=== PATIENT | male | born 1965 | race Caucasian/White ===

== ENCOUNTER → 2017-02-24 13:46 | Outpatient (CLI) | payer BC | END | disposition home or self-care (01) | LOC: D.CT 13:46 | DX: G45.9 Transient cerebral ischemic attack, unspecified (principal); H53.9 Unspecified visual disturbance; G51.8 Other disorders of facial nerve ==

== ENCOUNTER 2017-09-18 11:57 | Outpatient (CLI) | payer BC ==
[~2017-09-18] VITALS: Ht 185.4 cm; Wt 93.2 kg
--- NOTE | ~2017-09-18 | OP ---
PATIENT NAME: GENE LARSON MEDICAL RECORD: [id number] :61 LOCATION:D.CAT ADMISSION DATE: SURGEON: BENJAMIN CURTIS MD DATE OF OPERATION: 09/18/2017 PROCEDURE: Left heart cath with selective angiography. This was a difficult access sheath. Finally, we were able to cannulate the right brachial after attempts by myself and Dr. Serrano via left lower extremity, right lower extremity, and right radial. The procedure was well tolerated. The patient was returned to cobb, sheath removed. Manual pressure was used for hemostasis. FINDINGS: Left ventriculography in 30-degree VERGARA view: Normal wall motion, normal systolic function. CORONARY ANATOMY: LEFT MAIN: Left main is free of disease. LAD: Free of disease in the diagonal system. CIRCUMFLEX: Free of disease in the marginal systems. This is a left dominant system. RIGHT CORONARY ARTERY: Rudimentary, free of disease. IMPRESSION: Normal systolic function, normal coronary anatomy. DESCRIPTION OF PROCEDURE: The pigtail catheter was placed at the level of the renal arteries. Abdominal aortography as well as runoff of both lower extremities was performed. Nonselective renal arteriography shows no evidence of renal artery stenosis and a single right and left renal arteries. RIGHT SYSTEM: The right iliac system is occluded at the origin of the aorta. Distally there is filling of what appears to be the profunda at the level of the femoral head and distally the femoral system itself appears to be closed. LEFT SYSTEM: The left iliac system fills for a short period of time. This is thin, totally occludes the are of the femoral artery. The femoral itself appears to be filling via left to left collaterals. IMPRESSION: Severe peripheral vascular disease, not amenable to percutaneous intervention. We will plan for a CTA and referral to Dr. Turner for possible surgical revascularization. TRANSINT:[id number] Voice Confirmation ID: [id number] DOCUMENT ID: [id number] BENJAMIN CURTIS MD at 1424 CC: [id number] DICTATION DATE: 09/19/17828 POSTPARTUM NURSE: 09/19/17 1243 DEP CLI 09/18/17 [place] [address]
--- NOTE | ~2017-09-18 | HEMODYNAMI ---
PATIENT:GENE LARSON MEDICAL RECORD: [id number] : 61 LOCATION:[facility] ADMISSION DATE: 09/18/17 Generatedon:09/18/201715:55 Patient name: GENE LARSON Patient #: [id number] SSN: : 1965 Date of study: 09/18/2017 Page: Of Hemodynamic Procedure Report Patient Data Patient Demographics Procedure consent was obtained First Name: GENE Gender: Male Last Name: MARSHA : 1965 [facility] Initial: PURA Age: 52 year(s) Patient #: [id number] Race: Unknown Additional ID: [id number] Contact details [address]: [address] [place] [address] State: [place] City: [place] Zip code: [address] Past Medical History Allergies: No known allergies Admission Admission Data Admission Date: 09/18/2017 Admission Time: 11:57 Height (in.): 73 BSA: 2.17 (m2) Height (cm.): 185.42 BMI: 26.91 (kg/m2) Weight (lbs.): 204 Weight (kg.): 92.53 Procedure Procedure Types Cath Procedure Diagnostic Procedure C [facility] w/Coronaries Sedation Charges Moderate Sedation up to 45 minutes Peripheral Cath Diagnostic Procedure Cath Peripheral Dneac-Uwtksfc-Hbs-Off Procedure Description Procedure Date Procedure Date: 09/18/2017 Procedure Start Time: 14:32 Procedure End Time: 15:52 Procedure Staff Name Function Kem Cuenca MD Performing Physician Tea Bucio RT Monitor Tamiko Collins RN Nurse Nyasia Montelongo RT Scrub Procedure Data Cath Procedure Fluoroscopy Diagnostic fluoroscopy Total fluoroscopy Time: time: 14.4 min 14.4 min Diagnostic fluoroscopy Total fluoroscopy dose: dose: 1093 mGy 1093 mGy Contrast Material Contrast Material Type Amount (ml) Isovue 300 117 Entry Location Entry Primary Successful Side Size Upsize Upsize Entry Closure Lyons ccessful Closure Location (Fr) 1 (Fr) 2 (Fr) Remarks Device Remarks Brachial Right 6 Fr Manual artery Short Compression Estimated blood loss: 10 ml Diagnostic catheters Device Type Used For End Catheter Placement MULTIPACK Pigtail 5 Fr Procedure catheter DIAGNOSTIC Moose 110cm Procedure 5Fr catheter ([id number]) Procedure Complications No complications Procedure Medications Medication Administration Route Dosage Oxygen NC 2 l/min Lidocaine 2% added to field 20 Heparin Flush Bag added to field 2 bags (1000units/500ml NS) 0.9% NaCl I.V. 100 ml/hr Versed I.V. 2 mg Fentanyl I.V. 100 mcg Versed I.V. 1 mg Fentanyl I.V. 50 mcg Fentanyl I.V. 100 mcg Versed I.V. 1 mg Versed I.V. 1 mg Fentanyl I.V. 50 mcg Versed I.V. 1 mg Fentanyl I.V. 50 mcg Fentanyl I.V. 50 mcg Versed I.V. 1 mg Radial Cocktail I.A. 1 syringe (Verapomil 2mg/Nitro 400mcg/Heparin 1500units) Hemodynamics Rest BSA: 2.17 (m2) O2 Consumption: Estimated: 251.59 (ml/min) O2 Consumption indexed : Estimated:115.94 (ml/min/m) Heart Rate: 63 (bpm) Pressure Samples Time Site Value (mmHg) Purpose Heart Use Rate(bpm) 15:31 LV 105/18,19 Snapshot 70 15:32 AO 104/76(90) Pullback 69 15:32 LV 67/-2,9 Pullback 69 Gradients Valve Time Site 1 Site 2 Mean SEP/DFP Peak To Heart Use (mmHg) (sec/min) Peak Rate (mmHg) (bpm) Aortic 15:32 LV AO 0 69 67/-2,9 104/76(90) Calculations Valve P-P Mean Valve Index Valve Source Name Gradient Area Flow (cm2) Aortic 0 0 Snapshots Pre Cath Intra NCS Post Cath Vital Signs Time Heart Resp SPO2 etCO2 NIBP (mmHg) Rhythm Pain Sedation Rate (ipm) (%) (mmHg) Status Level (bpm) 14:18:36 67 16 97 0 141/88(106) NSR 0 (11) 10(A) , No pain 14:22:50 63 18 94 28.4 120/79(98) NSR 0 (11) 10(A) , No pain 14:27:04 64 15 95 34.4 113/68(88) NSR 0 (11) 10(A) , No pain 14:31:18 64 12 94 31.4 101/64(79) NSR 0 (11) 10(A) , No pain 14:35:26 65 14 97 35.1 110/63(91) NSR 0 (11) 9(A) , No pain 14:39:34 68 15 96 33.6 123/73(101) NSR 0 (11) 9(A) , No pain 14:43:48 70 14 93 29.1 121/67(101) NSR 0 (11) 9(A) , No pain 14:48:00 72 13 94 32.9 117/74(108) NSR 0 (11) 9(A) , No pain 14:52:08 73 14 94 38.8 130/81(97) NSR 0 (11) 9(A) , No pain 14:56:22 72 15 95 36.6 129/74(94) NSR 0 (11) 9(A) , No pain 15:00:34 72 13 93 34.3 118/80(95) NSR 0 (11) 9(A) , No pain 15:04:50 72 16 94 35.1 126/70(95) NSR 0 (11) 9(A) , No pain 15:09:06 73 14 94 38.1 130/68(102) NSR 0 (11) 9(A) , No pain 15:13:24 72 12 95 37.4 119/72(97) NSR 0 (11) 9(A) , No pain 15:17:36 73 15 94 36.6 120/75(100) NSR 0 (11) 9(A) , No pain 15:21:50 74 15 93 15.7 122/65(92) NSR 0 (11) 9(A) , No pain 15:25:59 74 16 92 21.6 113/71(92) NSR 0 (11) 9(A) , No pain 15:30:09 71 15 93 26.9 102/67(78) NSR 0 (11) 9(A) , No pain 15:34:17 68 15 93 33.6 107/67(82) NSR 0 (11) 9(A) , No pain 15:39:14 70 15 93 41.9 126/64(102) NSR 0 (11) 10(A) , No pain 15:43:28 74 17 94 27.6 119/73(86) NSR 0 (11) 10(A) , No pain 15:47:38 67 7 96 30.6 110/72(103) NSR 0 (11) 10(A) , No pain 15:51:48 66 11 95 41.8 123/73(94) NSR 0 (11) 10(A) , No pain Medications Time Medication Route Dose Verified Delivered Reason Notes Effectiveness by by 14:17:03 Oxygen NC 2 l/min Kem Buffie 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 100 Kem Buffie Per ml/hr St Alpesh Collins RN physician 14:29:02 Versed I.V. 2 mg Kem Buffie for sedation St Alpesh Collins RN, MD 14:29:08 Fentanyl I.V. 100 mcg Kem Buffie for sedation St Alpesh Collins RN, MD 14:33:09 Versed I.V. 1 mg Kem Buffie for sedation St Alpesh Collins RN, MD 14:33:13 Fentanyl I.V. 50 mcg Kem Buffie for sedation St Alpesh Collins RN, MD 14:39:30 Fentanyl I.V. 100 mcg Kem Buffie for sedation St Alpesh Collins RN, MD 14:40:23 Versed I.V. 1 mg Kem Buffie for sedation St Alpesh Collins RN, MD 14:54:39 Versed I.V. 1 mg Kem Buffie for sedation St Alpesh Collins RN, MD 14:54:44 Fentanyl I.V. 50 mcg Kem Buffie for sedation St Alpesh Collins RN, MD 15:07:29 Versed I.V. 1 mg Kem Buffie for sedation St Alpesh Collins RN, MD 15:07:40 Fentanyl I.V. 50 mcg Kem Buffie for sedation St Alpesh Collins RN, MD 15:19:56 Fentanyl I.V. 50 mcg Kem Buffie for sedation St Alpesh Collins RN, MD 15:22:53 Versed I.V. 1 mg Kem Buffie for sedation St Alpesh Collins RN, MD 15:28:57 Radial Cocktail I.A. 1 Kem Brownlee for (Verapomil syringe St Alpesh Cuenca vasodilation 2mg/Nitro MD VICTOR 400mcg/Heparin 1500units) Procedure Log Time Note 14:04:19 Patient Weight : 204 lbs 14:04:25 Patient Height : 73 inches 14:04:38 Procedure type changed to Cath procedure, Diagnostic procedure, LHC, LHC w/Coronaries, Sedation Charges, Moderate Sedation up to 45 minutes, Peripheral Cath Diagnostic Procedure, Cath Peripheral, Gyqlz-Jzsqolq-Zgu-Off 14:05:07 Diagnostic Cath status Elective 14:05:09 Tamiko Collins RN sent for patient. Start room use. 14:05:10 Time tracking: Regular hours (M-F 7:00 - 5:00) 14:05:19 Plan of Care:Hemodynamics will remain stable., Cardiac rhythm will remain stable., Comfort level will be maintained., Respiratory function will remain adequate., Patient/ family verbilizes understanding of procedure., Procedure tolerated without complication., Recovers from procedure without complications.. 14:09:42 Patient received from Pre/Post Procedure Room to CCL 2 Alert and oriented. Tansferred to table in Supine position. 14:09:43 Warm blankets applied, and kerwin hugger turned on for patient comfort. 14:09:44 Correct patient and procedure confirmed by team. 14:09:46 Signed procedure consent form obtained from patient. 14:09:48 ECG and BP/O2 sat monitors applied to patient. 14:17:03 Oxygen 2 l/min NC was administered by Tamiko Collins RN; used for procedure; 14:17:11 Lidocaine 2% 20ml vial added to field was administered by Kem Cuenca MD; for local anesthetic; 14:17:18 Heparin Flush Bag (1000units/500ml NS) 2 bags added to field was administered by Kem Cuenca MD; used for procedure; 14:17:28 0.9% NaCl 100 ml/hr I.V. was administered by Tamiko Collins RN; Per physician; 14:17:31 Vital chart was started 14:24:17 Baseline sample Acquired. 14:24:22 Rhythm: sinus rhythm 14:24:24 Full Disclosure recording started 14:24:35 H&P Date Dictated: 09/12/2017 Within 30 days and on chart., H&P Addendum completed by physician on day of procedure. (MUST COMPLETE FOR ALL OUTPATIENTS). 14:24:37 Pre-procedure instructions explained to patient. 14:24:39 Family in waiting room. 14::41 Patient NPO since Midnight. 14:24:53 Patient allergic to No known allergies 14:25:06 Is the patient allergic to Iodine/contrast media? No. 14:25:07 Was the patient premedicated? Yes 14:25:09 Is patient on blood thinner?No 14:25:13 Patient diabetic? No. 14:25:18 Snore? No 14:25:19 Sleep apnea? No 14:25:35 IV patent on arrival in left forearm with 0.9% NaCl at [facility]. 14::33 Lab results completed and on chart. 14:27:37 Bilateral groins area was prepped with chlora-prep and draped in sterile fashion 14:27:38 Alarms reviewed by R. N. 14::38 Sharps counted by scrub and verified by R.N. 14:27:40 Physician paged 14:27:40 Physician arrived 14:27:41 --------ALL STOP TIME OUT------ 14:27:42 Final Timeout: patient, procedure, and site verified with staff and physician. All members of the team are in agreement. 14:27:45 Bilateral groins site verified by team. 14:27:48 Physical assessment completed. ASA score P 2 - A patient with mild systemic disease as per Kem Cuenca MD. 14:27:52 Sedation plan: IV Moderate Sedation Medication:Versed, Fentanyl 14:29:02 Versed 2 mg I.V. was administered by Tamiko Collins RN; for sedation; 14:29:08 Fentanyl 100 mcg I.V. was administered by Tamiko Collins RN; for sedation; 14:30:59 Use device set Femoral Dx 14:31:04 Procedure started. 14:31:33 ACIST Syringe (03765) opened to sterile field. 14:31:34 Bag Decanter (2002) opened to sterile field. 14:31:38 Medline Cath Pack ([id number]) opened to sterile field. 14:31:38 DIAGNOSTIC WIRE .035 260cm J wire (464064) opened to sterile field. 14:31:40 ACIST Hand Control (90896) opened to sterile field. 14:31:40 ACIST Manifold (45986) opened to sterile field. 14:31:41 DIAGNOSTIC Multipack 5Fr catheter set ([id number]) opened to sterile field. 14:31:44 Tegaderm 4 x 4 (1626W) opened to sterile field. 14:32:39 Local anesthetic to right femoral artery with Lidocaine 2% by Kem Cuenca MD.INITIAL ACCESS ONLY 14:33:09 Versed 1 mg I.V. was administered by Tamiko Collins RN; for sedation; 14:33:13 Fentanyl 50 mcg I.V. was administered by Tamiko Collins RN; for sedation; 14:37:26 MICROPUNCTURE 4FR Cook ([id number]) opened to sterile field. 14:37:36 Local anesthetic to left femerol artery with Lidocaine 2% by Kem Cuenca MD.ADDITIONAL ACCESS 14:38:18 access attained in the left femoral vein. 14:39:30 Fentanyl 100 mcg I.V. was administered by Tamiko Collins RN; for sedation; 14:40:23 Versed 1 mg I.V. was administered by Tamiko Collins RN; for sedation; 14:54:39 Versed 1 mg I.V. was administered by Tamiko Collins RN; for sedation; 14:54:44 Fentanyl 50 mcg I.V. was administered by Tamiko Collins RN; for sedation; 15:00:03 Local anesthetic to right radial artery with Lidocaine 2% by Kem Cuenca MD.ADDITIONAL ACCESS 15:00:53 right radial artery prepped 15:07:29 Versed 1 mg I.V. was administered by Tamiko Collins RN; for sedation; 15:07:40 Fentanyl 50 mcg I.V. was administered by Tamiko Collins RN; for sedation; 15:19:56 Fentanyl 50 mcg I.V. was administered by Tamiko Collins RN; for sedation; 15:22:53 Versed 1 mg I.V. was administered by Tamiko Collins RN; for sedation; 15:26:20 right brachial artery prepped 15:26:56 A 6 Fr Short sheath was inserted into the Right Brachial artery 15:27:02 J wire advanced. 15:28:57 Radial Cocktail (Verapomil 2mg/Nitro 400mcg/Heparin 1500units) 1 syringe I.A. was administered by Kem Cuenca MD; for vasodilation; 15:30:15 A MULTIPACK Pigtail 5 Fr catheter was advanced over the wire and used for Procedure. 15:32:36 EF : 55 % 15:32:38 LV hemodynamics recorded. 15:32:49 A 5 FrFr Pigtail catheter was inserted over the wire. 15:32:51 Abdominal angiogram w/ runoff was performed. 15:41:29 Catheter removed. 15:41:40 A DIAGNOSTIC Moose 110cm 5Fr catheter ([id number]) was advanced over the wire and used for Procedure. 15:41:55 LCA angiography performed. 15:42:20 RCA angiography performed. 15:45:13 Catheter removed. 15:46:01 Sheath removed intact; hemostasis achieved with Manual Compression to the Right Brachial artery. 15:46:04 Procedure ended.(Physican Out) 15:47:39 Fluoroscopy time 14.40 minutes. 15:47:43 Fluoroscopy dose: 1093 mGy 15:47:43 Flurop Dose total: 1093 15:48:01 Contrast amount:Isovue 300 117ml. 15:48:03 Sharps counted by scrub and verified by R.N. 15:48:05 Insertion/operative site no bleeding no hematoma. 15:48:11 Post-op/insertion site Right Femoral artery dressed using a 4 x 4 and Tegaderm. 15:48:14 Post-op/insertion site Left Femoral artery dressed using a 4 x 4 and Tegaderm. 15:48:20 Post-op/insertion site Right Radial artery dressed using a Bandaid. 15:48:37 Post-op/insertion site Right Brachial artery dressed using a 4 x 4 and Tegaderm. 15:48:43 Post right brachial artery:stable 15:48:46 Post Procedure Pulses reassessed and unchanged 15:48:49 Post-procedure physical assessment completed. ASA score P 2 - A patient with mild systemic disease as per Kem Cuenca MD. 15:48:54 Post procedure rhythm: sinus rhythm 15:49:00 Estimated blood loss: 10 ml 15:49:05 Post procedure instruction explained to patient.Patient verbalizes understanding. 15:49:08 Patient needs reinforcement of post procedure teaching. 15:50:18 Procedure and supply charges have been captured, reviewed, submitted and are correct. 15:51:50 Procedure Complication : No complications 15:51:52 Vital chart was stopped 15:51:53 See physician's report for complete and final results. 15:51:55 Report given to Pre/Post Procedure Room. 15:52:03 Patient transfered to Pre/Post Procedure Room with Stretcher. 15:52:05 Procedure ended. 15:52:05 Full Disclosure recording stopped 15:52:14 End room use (Document Last) Device Usage Item Name Manufacture Quantity Catalog Hospital Part Current Minimal Lot# / Number Charge Number Stock Stock Serial# Code ACIST Syringe Acist 1 66132 838856 454793 849000 20 (67128) Medical Systems Inc Bag Decanter Microtek 1 2001S 045193 04475 987879 5 (2001S) Medical Inc. Medline Cath Cardinal 1 [id number] 012765 32368 964585 5 Pack Health ([id number]) DIAGNOSTIC St Ezra 1 411960 613475 937924 740240 30 WIRE .035 260cm J wire (585048) ACIST Hand Acist 1 03300 286943 784049 118441 5 Control Medical (49676) Systems Inc ACIST Acist 1 89787 532256 153979 247680 5 Manifold Medical (05261) Systems Inc DIAGNOSTIC Cardinal 1 HF7256 033055 33045 493781 30 Multipack 5Fr Health catheter set (YH2986) Tegaderm 4 x 3M 1 1626W 904544 265395 557815 5 4 (1626W) MICROPUNCTURE Cook Medical 1 N77032 671023 511418 920262 5 4FR Cook (K51110) MULTIPACK Cardinal 1 185000 5 Pigtail 5 Fr Health catheter DIAGNOSTIC Terumo 1 38-0729 204506 890154 830188 5 Moose 110cm 5Fr catheter (665334) Signature Audit [place] Stage Time Signature Unsigned Intra-Procedure 09/18/2017 Tea Bucio 3:54:59 PM RT(R) Signatures Monitor : Tea Bucio Signature : RT Date : Time : [facility] [address] [place], [place] [id number]
[2017-09-18] MEDS ORDERED: LEVOXYL25 MCG PO (12:18)
[2017-09-18] MEDS ORDERED: DICLOFENAC SODI50 MG PO (12:18)
[2017-09-18] MEDS ORDERED: PAROXETINE HCL10 MG PO (12:19)
[2017-09-18] MEDS ORDERED: OMEPRAZOLE20 M1 PO (12:19)
[2017-09-18] MEDS ORDERED: CYCLOBENZAPRINE10 MG PO (12:20)
[2017-09-18] MEDS ORDERED: NORVASC5 MG PO (12:20)
[2017-09-18] MEDS ORDERED: ZEBETA5 MG PO (12:20)
[2017-09-18] MEDS ORDERED: LIPITOR80 MG PO (12:21)
[2017-09-18] MEDS ORDERED: TRAZODONE HCL50 MG PO (12:21)
[2017-09-18] MEDS ORDERED: ASPIRIN81 MG PO (12:22)
[2017-09-18] MEDS ORDERED: ASPIRIN325 MG PO (12:22)
[2017-09-18] MEDS ORDERED: FISH OIL 1,2001 CAP PO (12:23)
[2017-09-18] MEDS ORDERED: MAG-OX 400 MG400 MG PO (12:24)
[2017-09-18] MEDS ORDERED: POTASSIUM99 M1 PO (12:24)
[2017-09-18] MEDS ORDERED: MULTIPLE VITAMI1 TA1 PO (12:25)
[2017-09-18 12:42] LABS: BASOPHILS 0.3 % (0-2); EOSINOPHILS 1.6 % (0-7); HEMOGLOBIN 16.8 g/dL (13.5-17.5); IMMATURE GRANULOCYTES 0.9 % (0-5); LYMPHOCYTES 28.1 % (15-50); MCV 91.4 fL (80.0-100.0); MEAN PLATELET VOLUME 10.2 fL (7.4-10.4); MONOCYTES 8.8 % (2-11); NEUTROPHILS 60.3 % (40-80); PLATELET COUNT 176 10x3/uL (130-400); RBC 5.25 10x6/uL (4.20-6.10); RDW 13.2 % (11.5-14.5)
[2017-09-18 12:52] VITALS: BP 134/77; Ht 185.4 cm; Wt 93.2 kg
[2017-09-18 12:58] LABS: ANION GAP 12.3 mmol/L (8-16); CARBON DIOXIDE 25.9 mmol/L (21.0-32.0); CREATININE - SERUM 1.2 mg/dL (0.6-1.3); POTASSIUM - SERUM 4.2 mmol/L (3.5-5.1)
[2017-09-18] MEDS ORDERED: HYDROCODONE-APA1 TAB PO (17:04)
== END 2017-09-18 18:30 | disposition home or self-care (01) ==
LOC: D.CATH 11:57
PROVIDERS: Internal Medicine Interventional Cardiology
DX: I70.203 Unspecified atherosclerosis of native arteries of extremities, bilateral legs (principal); I10 Essential (primary) hypertension; Z01.812 Encounter for preprocedural laboratory examination

== ENCOUNTER → 2017-09-22 13:26 | Outpatient (CLI) | payer BC ==
[2017-09-18 12:52] VITALS: BMI 27.1
[~2017-09-22 13:26] MED LIST: ASPIRIN325 MG PO; ASPIRIN81 MG PO; CYCLOBENZAPRINE10 MG PO; DICLOFENAC SODI50 MG PO; FISH OIL 1,2001 CAP PO; HYDROCODONE-APA1 TAB PO; LEVOXYL25 MCG PO; LIPITOR80 MG PO; MAG-OX 400 MG400 MG PO; MULTIPLE VITAMI1 TA1 PO; NORVASC5 MG PO; OMEPRAZOLE20 M1 PO; PAROXETINE HCL10 MG PO; POTASSIUM99 M1 PO; TRAZODONE HCL50 MG PO; ZEBETA5 MG PO
== END | disposition home or self-care (01) ==
LOC: D.CT 13:26
DX: I70.219 Atherosclerosis of native arteries of extremities with intermittent claudication, unspecified extremity (principal); I73.9 Peripheral vascular disease, unspecified

== ENCOUNTER → 2017-10-06 07:46 | Outpatient (CLI) | payer BC ==
[2017-09-18 12:52] VITALS: BMI 27.1
[~2017-10-06 07:46] MED LIST changes: +LOPRESSOR25 MG PO; +MILK OF MAGNESI30 ML PO; +PERCOCET 10/3251 TA1 PO
== END | disposition home or self-care (01) ==
LOC: D.MRI 07:46
DX: E27.9 Disorder of adrenal gland, unspecified (principal)

== ENCOUNTER 2017-10-23 05:00 | Inpatient (IN) | payer BC ==
[2017-10-20 12:02] LABS: BASOPHILS 0.4 % (0-2); EOSINOPHILS 2.6 % (0-7); HEMOGLOBIN 15.8 g/dL (13.5-17.5); IMMATURE GRANULOCYTES 0.4 % (0-5); LYMPHOCYTES 31.8 % (15-50); MCH 31.7 pg (26.0-34.0); MCHC 34.3 g/dL (31.0-37.0); MCV 92.2 fL (80.0-100.0); MONOCYTES 7.2 % (2-11); NEUTROPHILS 57.6 % (40-80); PLATELET COUNT 163 10x3/uL (130-400); RBC 4.99 10x6/uL (4.20-6.10); RDW 13.5 % (11.5-14.5); WBC 7.6 10x3/uL (4.8-10.8)
[2017-10-20 12:11] LABS: APPEARANCE CLEAR (CLEAR); BILIRUBIN NEGATIVE (NEGATIVE); COLOR YELLOW (YELLOW); GLUCOSE NEGATIVE (NEGATIVE); KETONE NEGATIVE (NEGATIVE); NITRITE NEGATIVE (NEGATIVE); PROTEIN NEGATIVE (NEGATIVE); UROBILINOGEN NORMAL (NORMAL)
[2017-10-20 12:14] LABS: APTT 32.9 SECONDS (22.8-39.4); INR 0.97 (0.85-1.17); PROTIME 12.5 SECONDS (11.6-15.0)
[2017-10-20 12:23] LABS: ALBUMIN 3.9 g/dL (3.4-5.0); ANION GAP 13.5 mmol/L (8-16); BILIRUBIN - TOTAL 0.55 mg/dL (0.2-1.3); CALCIUM 9.3 mg/dL (8.5-10.1); CARBON DIOXIDE 26.8 mmol/L (21.0-32.0); CREATININE - SERUM 1.1 mg/dL (0.6-1.3); POTASSIUM - SERUM 4.3 mmol/L (3.5-5.1); PROTEIN - SERUM 7.3 g/dL (6.4-8.2)
[2017-10-23] VITALS (47 sets, daily range): BP systolic 92–135; BP diastolic 47–76; BMI 27.1; BMI 26.2
[~2017-10-23] VITALS: Ht 185.4 cm; Wt 93.7 kg
--- NOTE | ~2017-10-23 | HP ---
PATIENT: GENE LARSON MEDICAL RECORD: [id number] ACCOUNT: [id number] LOCATION:[facility] : 61 ADMISSION DATE: 10/23/17 HISTORY AND PHYSICAL EXAMINATION GENE Sanchez (52yo, M) ID# [id number]. Date/Time10/03/2017 11:15CYIKN1965[facility] Dept.NPP_[facility] ClinicProviderTRI LEONARD MDInsuranceMed Primary: [place]) Insurance # : [id number] Policy/Group # : [id number] Referring Provider Name : TRIPP LEWIS Employer Name : [employer]\ Prescription: CMX - Member is eligible. Chief Complaint PVD - peripheral vascular disease Patient's Care Team Referring Provider (): TRIPP LEWIS: [address] [place] [phone], , Station Attendant: BENJAMIN CURTIS MD: [address] [place] [phone], , Patient's Pharmacies [facility] ([facility]): [address] [place] [id number], , Vitals BP:180/78 sitting L arm 10/03/2017 11:28 am 176/76 sitting R arm 10/03/2017 11:29 amBP Cuff Size:adult 10/03/2017 11:28 am adult 10/03/2017 11:29 amHR:80 10/03/2017 11:29 amHt:6 ft 1 in 10/03/2017 11:30 amWt:205 lbs 10/03/2017 11:30 amNotes:LLE tingling, pain in hip. Had heart cath w afro, also had CTA abd AFRO feet get numb at night can't walk 50 yards without /29/2018 11:32 amBMI:27 10/03/2017 11:30 amAllergies Reviewed Allergies NKDAMedications Reviewed Medications amLODIPine 5 mg iweksa29/11/18 filledCaremarkaspirin 81mg daily09/29/17 enteredEridaren Watkinsatorvastatin 80 mg uexoow92/29/18 filledCaremarkbisoprolol fumarate 5 mg nfdoaj87/02/18 filledCaremarkbusPIRone 15 mg keofhn05/07/17 filledCaremarkcephALEXin 500 mg xibrtms92/11/17 filledCaremarkchlorhexidine gluconate 0.12 % vwyoidrji56/11/17 filledCaremarkcyclobenzaprine 10 mg hagfgg00/29/18 filledCaremarkdexamethasone 4 mg qvioqs04/11/17 filledCaremarkdiclofenac sodium 50 mg tablet,delayed plignot96/06/18 filledCaremarkHYDROcodone 10 mg-acetaminophen 325 mg acisgn76/14/18 filledCaremarklevothyroxine 25 mcg mixlta17/06/18 filledCaremarkomeprazole 20 mg capsule,delayed flxqcoa91/07/18 filledCaremarkPARoxetine 10 mg frhiqr60/07/18 filledCaremarksildenafil (antihypertensive) 20 mg tablet Take 1 tablet(s) 3 times a day by oral route.09/29/17 enteredEridaern WatkinstraZODone 50 mg /11/18 filledCaremarkProblems Reviewed Problems Hyperlipidemia Essential hypertension Peripheral vascular disease Osteoarthritis Palpitations HISTORY AND PHYSICAL [id number] GENE LARSON Chest pain - Onset: 09/12/2017 Family History Reviewed Family History Father- Myocardial infarctionSocial History Reviewed Social History Cardiology Family history of heart disease?: Y Smoking Status: Current every day smoker Smoker (1 PPD) High Cholesterol: Y High blood pressure: Y Diabetes: N Alcohol intake: Occasional Surgical History Reviewed Surgical History Past Medical History Reviewed Past Medical History Angina: Y Eye Problems: Y - R EYE-STROKE Heartburn: Y High Blood Pressure: Y Hyperlipidemia: Y Hypertension: Y Pain in legs when walking: Y Palpitation: Y Peripheral Vascular Disease (PVD): Y Thyroid Problems: Y Documents for Discussion N/A Screening None recorded. HPI 52-year-old male with claudication at 50 feet, status post cardiac catheterization via brachial with iliac occlusion and no significant coronary disease. CTA runoff reconstitutes the right femoral for a short distance both superficial femorals are occluded profundas looked very small and on the right the popliteal does not reconstitute until below the knee ROS Additionally reports: as reviewed in the chart with the patient ROS as noted in the HPI Physical Exam Patient is a 52-year-old male. Constitutional: General Appearance well nourished and developed and healthy-appearing. Level of Distress NAD. Ambulation ambulating normally. Cardiovascular: Apical Impulse not displaced or no thrill. Heart Auscultation normal s1 and s2; no murmurs, rubs, or gallops; and RRR. Edema no edema or varicosities. Lungs: Repiratory Effort no dyspnea. Percussion no hyperresonance or dullness or flatness. Auscultation no wheezing, rhonchi, or rales / crackles and breathing sounds normal, good air movement, and CTA except as noted. HISTORY AND PHYSICAL [id number] GENE LARSON Abdomen: Bowl Sounds normal. Inspection and Palpation no tenderness, guarding, masses, or rebound tenderness and soft and non-distended. Julisa er non-tender and no hepatomegaly. Spleen non-tender and no splenomegaly. Hernia none palpable. Musculoskeletal System: Gait And Stance normal gait and stance. Digits and Nails normal nails and no cyanosis. Neurologic: Cranial Nerves grossly intact. Reflexes DTRs 2+ bilaterally throughout. Sensation grossly intact. Lymph Nodes: Lymph Nodes no cervical LAD, supraclavicular LAD, axillary LAD, or inguinal LAD. Eyes: Lids and Conjunctivae no discharge or pallor and non-injected. Pupils PERRLA. Cornea grossly intact. EOM EOMI. Lens clear. Sclerae non-icteric. Neck: Neck no masses, enlarged lymph nodes, or carotid bruits and supple and trachea midline. Thyroid no enlargement or nodules and non-tender. Skin: Inspection and Palpation no rash, lesions, ulcers, jaundice, or abnormal nevi. Assessment / Plan 1. 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
--- NOTE | ~2017-10-23 | OP ---
PATIENT NAME: GENE LARSON MEDICAL RECORD: [id number] :61 LOCATION:D.CVI D.CV05 ADMISSION DATE:10/23/17 SURGEON: GLENN LEONARD MD DATE OF OPERATION: 10/23/2017 SURGEON: Glenn Leonard MD CUTTER APPRENTICE HAND: STACEY Rutherford MD and RODOLFO Stone OPERATION PERFORMED: Aortobifemoral bypass for occlusive disease. PREOPERATIVE DIAGNOSIS: Aortoiliac occlusive disease and peripheral vascular disease with claudication. ANESTHESIA: General endotracheal anesthesia. ESTIMATED BLOOD LOSS: 650 cc with Cell Saver retransfusion. COMPLICATIONS: None. SPECIMENS: Right inguinal lymph node. CONDITION: Stable. DISPOSITION: ICU. OPERATIVE FINDINGS: 1. Large right inguinal lymph node. 2. Normal infrarenal aorta end-to-end anastomosis with the aorta oversewn just above the bifurcation, no sizable inferior mesenteric artery. 3. The right common femoral had egg shell-like plaque and the head of the graft was taken down over the profunda femoral with good augmented Doppler flow in the profunda femoral and good flow unexpectedly also in the superficial femoral. There was a large more proximal profunda and the more distally it branched off the posterior aspect of the superficial femoral that appeared to go posteriorly. 4. On the left, the common femoral artery was small as previously seen. Therefore, the graft was taken off just over the origin of 2 large profunda femoral arteries and the head down onto the superficial femoral with again good augmented flow after anastomosis and after reversal of heparin. INDICATION: Severe short distance claudication, iliac occlusion, and infra inguinal peripheral vascular disease. DESCRIPTION OF PROCEDURE: The patient was brought to the operating suite where general anesthesia was obtained, the patient was prepped and draped. Bilateral incisions were made simultaneously over the groin in a vertical fashion, taken down to the common femoral, superficial femoral, profunda femorals, which were dissected out. Midline incision was made. The abdomen was entered. The bowels were carefully packed out of the way. The retroperitoneum was entered. The inferior mesenteric vein was preserved and the left renal vein was retracted upwardly. The aorta was encircled just below the renal arteries. Heparin was given after tunneling between the retroperitoneum and both groins. OPERATIVE REPORT [id number] GENE LARSON The aorta was clamped. The aorta was transected. Distal aorta was oversewn. End-to-end anastomosis with 14 x 7 bifurcated Hemashield was performed. The graft was flushed. There was no bleeding. The limbs of the graft were brought into both groins, first the right and then the left were sewn on in a standard fashion. Backbleeding was allowed prior to completing the anastomosis and then flow was restored. Good Doppler signal was noted. Protamine was given. Thorough irrigation was undertaken. Hemostasis was ensured including using Surgicel. Back in the abdomen, the retroperitoneum was thoroughly irrigated. Surgicel was used for hemostasis. Retroperitoneum was closed. The intestines were brought back into their anatomic position and thorough irrigation with several liters of warm saline was performed. Abdomen was closed with running PDS, subcutaneous and skin clips and then the groins 2 layers and skin clips. Good Doppler dorsalis pedis pulses bilaterally and to CV ICU in stable condition. TRANSINT:[id number] Voice Confirmation ID: [id number] DOCUMENT ID: [id number] GLENN LEONARD MD at 0736 CC: ANABELLE PIERSON [id number] DICTATION DATE: 10/23/17 1240 SENIOR GEOTECHNICAL ENGINEER: 10/23/17 1404 ADM IN [facility] [address] [place] [address]
[~2017-10-23 05:00] MED LIST changes: -LOPRESSOR25 MG PO; -MILK OF MAGNESI30 ML PO; -PERCOCET 10/3251 TA1 PO
[2017-10-23 13:11] LABS: HEMATOCRIT 43.3 % (42.0-54.0); HEMOGLOBIN 14.9 g/dL (13.5-17.5); MCHC 34.4 g/dL (31.0-37.0); MCV 93.1 fL (80.0-100.0); MEAN PLATELET VOLUME 9.9 fL (7.4-10.4); RBC 4.65 10x6/uL (4.20-6.10); RDW 13.6 % (11.5-14.5); WBC 26.8 10x3/uL (4.8-10.8)
[2017-10-23 13:45] LABS: ALBUMIN 3.1 g/dL (3.4-5.0); ANION GAP 15.4 mmol/L (8-16); BILIRUBIN - TOTAL 0.91 mg/dL (0.2-1.3); CALCIUM 7.4 mg/dL (8.5-10.1); CARBON DIOXIDE 24.1 mmol/L (21.0-32.0); CREATININE - SERUM 1.4 mg/dL (0.6-1.3); POTASSIUM - SERUM 4.5 mmol/L (3.5-5.1); PROTEIN - SERUM 5.5 g/dL (6.4-8.2)
[2017-10-24] VITALS (27 sets, daily range): BP systolic 105–137; BP diastolic 55–74; Ht 185.4 cm; Wt 93.7 kg
[2017-10-24 06:04] LABS: HEMATOCRIT 39.2 % (42.0-54.0); HEMOGLOBIN 13.1 g/dL (13.5-17.5); MCH 31.4 pg (26.0-34.0); MCHC 33.4 g/dL (31.0-37.0); MEAN PLATELET VOLUME 9.9 fL (7.4-10.4); RBC 4.17 10x6/uL (4.20-6.10); RDW 13.9 % (11.5-14.5); WBC 11.7 10x3/uL (4.8-10.8)
[2017-10-24 06:20] LABS: ALBUMIN 2.8 g/dL (3.4-5.0); ANION GAP 14.2 mmol/L (8-16); BILIRUBIN - TOTAL 0.7 mg/dL (0.2-1.3); CARBON DIOXIDE 23.5 mmol/L (21.0-32.0); CREATININE - SERUM 1.3 mg/dL (0.6-1.3); PROTEIN - SERUM 5.7 g/dL (6.4-8.2)
[2017-10-24 06:22] LABS: POTASSIUM - SERUM 3.7 mmol/L (3.5-5.1)
[2017-10-25] VITALS (24 sets, daily range): BP systolic 124–146; BP diastolic 51–78
[2017-10-25 04:25] LABS: HEMATOCRIT 35.5 % (42.0-54.0); HEMOGLOBIN 11.8 g/dL (13.5-17.5); MCH 31.1 pg (26.0-34.0); MCHC 33.2 g/dL (31.0-37.0); MCV 93.4 fL (80.0-100.0); MEAN PLATELET VOLUME 9.6 fL (7.4-10.4); RBC 3.8 10x6/uL (4.20-6.10); RDW 13.7 % (11.5-14.5); WBC 11.2 10x3/uL (4.8-10.8)
[2017-10-25 04:39] LABS: ALBUMIN 2.8 g/dL (3.4-5.0); ALKALINE PHOSPHATASE 62 U/L (46-116); ALT (SGPT) 50 U/L (10-68); CALC OSMOLALITY 280 mosm/kg (275-300); CALCIUM 8.1 mg/dL (8.5-10.1); CARBON DIOXIDE 27.7 mmol/L (21.0-32.0); CHLORIDE - SERUM 107 mmol/L (98-107); GLUCOSE 154 mg/dL (74-106); POTASSIUM - SERUM 3.5 mmol/L (3.5-5.1); PROTEIN - SERUM 5.9 g/dL (6.4-8.2); SODIUM 139 mmol/L (136-145); UREA NITROGEN 12 mg/dL (7-18); eGFR NON AFRICAN AMERICAN 83 mL/min (90-120)
[2017-10-26] VITALS (24 sets, daily range): BP systolic 114–139; BP diastolic 49–77
[2017-10-26 06:21] LABS: HEMATOCRIT 33.6 % (42.0-54.0); HEMOGLOBIN 11.3 g/dL (13.5-17.5); MCHC 33.6 g/dL (31.0-37.0); MCV 92.3 fL (80.0-100.0); MEAN PLATELET VOLUME 9.9 fL (7.4-10.4); RBC 3.64 10x6/uL (4.20-6.10); RDW 13.5 % (11.5-14.5); WBC 11.9 10x3/uL (4.8-10.8)
[2017-10-26 06:52] LABS: ALBUMIN 2.4 g/dL (3.4-5.0); ALKALINE PHOSPHATASE 59 U/L (46-116); ALT (SGPT) 53 U/L (10-68); CALC OSMOLALITY 273 mosm/kg (275-300); CALCIUM 8.7 mg/dL (8.5-10.1); CARBON DIOXIDE 25.1 mmol/L (21.0-32.0); CHLORIDE - SERUM 104 mmol/L (98-107); CREATININE - SERUM 0.9 mg/dL (0.6-1.3); GLUCOSE 128 mg/dL (74-106); POTASSIUM - SERUM 3.5 mmol/L (3.5-5.1); SODIUM 137 mmol/L (136-145); UREA NITROGEN 8 mg/dL (7-18); eGFR NON AFRICAN AMERICAN > 90 mL/min (90-120)
[2017-10-27] VITALS (36 sets, daily range): BP systolic 55–148; BP diastolic 23–89
[2017-10-27 06:20] LABS: HEMATOCRIT 33.6 % (42.0-54.0); HEMOGLOBIN 11.4 g/dL (13.5-17.5); MCH 31.2 pg (26.0-34.0); MCHC 33.9 g/dL (31.0-37.0); MCV 92.1 fL (80.0-100.0); MEAN PLATELET VOLUME 10.1 fL (7.4-10.4); RBC 3.65 10x6/uL (4.20-6.10); RDW 13.4 % (11.5-14.5); WBC 10.5 10x3/uL (4.8-10.8)
[2017-10-27 06:50] LABS: ALBUMIN 2.4 g/dL (3.4-5.0); ALKALINE PHOSPHATASE 71 U/L (46-116); ALT (SGPT) 58 U/L (10-68); CALC OSMOLALITY 272 mosm/kg (275-300); CALCIUM 8.3 mg/dL (8.5-10.1); CARBON DIOXIDE 24.1 mmol/L (21.0-32.0); CHLORIDE - SERUM 103 mmol/L (98-107); GLUCOSE 128 mg/dL (74-106); POTASSIUM - SERUM 3.8 mmol/L (3.5-5.1); PROTEIN - SERUM 6.2 g/dL (6.4-8.2); SODIUM 136 mmol/L (136-145); UREA NITROGEN 10 mg/dL (7-18); eGFR NON AFRICAN AMERICAN 83 mL/min (90-120)
[2017-10-28] VITALS (30 sets, daily range): BP systolic 97–148; BP diastolic 43–97
[2017-10-29] VITALS (23 sets, daily range): BP systolic 113–149; BP diastolic 44–89
[2017-10-30] VITALS (10 sets, daily range): BP systolic 117–135; BP diastolic 59–82
[2017-10-30] MEDS ORDERED: LOPRESSOR25 MG PO (10:56)
[2017-10-30] MEDS ORDERED: MILK OF MAGNESI30 ML PO (11:00)
[2017-10-30] MEDS ORDERED: PERCOCET 10/3251 TA1 PO (11:05)
== END 2017-10-30 12:28 | disposition home or self-care (01) | DRG 272 ==
LOC: D.SDCHOLD 05:00 → D.CVICU 05:00 → D.SDCHOLD 07:30 → D.CLR 10:00 → D.CVICU 10:19
PROVIDERS: Internal Medicine Cardiovascular Disease; Thoracic Surgery (Cardiothoracic Vascular Surgery)
PROC: 04100JJ Bypass Abdominal Aorta to Left Femoral Artery with Synthetic Substitute, Open Approach (ICD-10-PCS; principal; 2017-10-23 07:30)
DX: I70.213 Atherosclerosis of native arteries of extremities with intermittent claudication, bilateral legs (principal); E27.8 Other specified disorders of adrenal gland; F17.200 Nicotine dependence, unspecified, uncomplicated; M19.90 Unspecified osteoarthritis, unspecified site; E78.5 Hyperlipidemia, unspecified; I10 Essential (primary) hypertension; R00.2 Palpitations; M25.552 Pain in left hip

== ENCOUNTER → 2018-02-13 14:36 | Outpatient (CLI) | payer BC ==
[2017-10-24 10:43] VITALS: BMI 26.3
[~2018-02-13 14:36] MED LIST changes: +LOPRESSOR25 MG PO; +MILK OF MAGNESI30 ML PO; +PERCOCET 10/3251 TA1 PO
== END | disposition home or self-care (01) ==
LOC: D.US 08:00
DX: I73.9 Peripheral vascular disease, unspecified (principal); M79.605 Pain in left leg; M79.604 Pain in right leg

== ENCOUNTER → 2019-01-04 08:20 | Outpatient (CLI) | payer BC ==
[2017-10-24 10:43] VITALS: BMI 26.3
[~2019-01-04 08:20] MED LIST changes: +HYDROCODON-ACE1 EA10 PO
--- NOTE | 2019-01-08 14:28 | EC ---
PATIENT:GENE LARSON DATE OF SERVICE: 01/04/19 SEX: M MEDICAL RECORD: [id number] DATE OF : 61 [facility] AGE OF PATIENT: 53 ADMISSION DATE: 01/04/19 REFERRING PHYSICIAN: INTERPRETING PHYSICIAN: BENJAMIN CURTIS MD ECHOCARDIOGRAM REPORT ECHO CHARGES 4 ECHO COMPLETE Date: 01/04/19 CLINICAL DIAGNOSIS: HTN ECHOCARDIOGRAPHIC MEASUREMENTS (adult normal given) AC root (d.<3.7cm) 3.5 cm LV Septum d (<1.2 cm> 1.2 cm Valve Excursion 1.9 cm LV Septum (systole) 1.9 cm Left Atria (s.<4.0cm> 3.8 cm LVPW d(<1.2cm) 1.5 cm RV (d.<2.3cm) 4.0 cm LVPW (sytole) 1.9 cm LV diastole(<5.6CM) 4.7 cm MV E-F(>70mm/sec) cm LV systole 2.9 cm LVOT Diameter 1.9 cm MV exc.(>10mm) 1.7 cm Est.ejection fraction (50-75%) % DOPPLER: LVIT cm/sec A 80.0 cm/sec E 92.0 cm/sec LA cm/sec RVSP 19 mmHg LVOT 93 cm/sec AOP1/2T m/s Asc. Ao 119 cm/sec RVOT cm/sec RA cm/sec PA cm/sec AV Gradient Peak 5.66 mmHg AV Mean 2.81 mmHg AV Area 2.8 cm MV Gradient Peak 4.86 mmHg MV Mean 1.39 mmHg MV Area cm COMMENTS: [employer]ists: 2 [employer] Supervisor: 3 Dr. Yu TAPE# PACS Pericardial Effusion N DATE OF SERVICE: Adequate 2D, color flow, spectral Doppler, and M-mode. LVH is present. LV internal dimension is normal. Wall motion is normal. EF is greater than or equal to 55%. Aortic valve is tricuspid. No evidence of stenosis by Doppler interrogation. Left atrium is normal at 3.8 cm. Mitral valve shows no prolapse. Trace MR. Right-sided chambers grossly normal. Trace TR. TRANSINT:[id number] Voice Confirmation ID: [id number] DOCUMENT ID: [id number] ECHOCARDIOGRAM REPORT [id number] MARSHA,GENE PURABENJAMIN BAZZI MD at 1428 CC: [id number] DICTATION DATE: 01/08/19 1313 COMMERCIAL COLLECTOR: 01/08/19 1322 DEP CLI 01/04/19 [id number] [place] [address]
== END | disposition home or self-care (01) ==
LOC: D.HCCARDIO 08:20
PROVIDERS: ATTEND Internal Medicine Interventional Cardiology
DX: I10 Essential (primary) hypertension (principal)

== ENCOUNTER 2019-01-11 05:15 | Day surgery (SDC) | payer BC ==
[2019-01-10 11:11] LABS: BASOPHILS 0.2 % (0-2); EOSINOPHILS 2.3 % (0-7); HEMATOCRIT 46.4 % (42.0-54.0); HEMOGLOBIN 16.5 g/dL (13.5-17.5); IMMATURE GRANULOCYTES 0.5 % (0-5); LYMPHOCYTES 22.8 % (15-50); MCH 31.4 pg (26.0-34.0); MCHC 35.6 g/dL (31.0-37.0); MCV 88.2 fL (80.0-100.0); MEAN PLATELET VOLUME 9.9 fL (7.4-10.4); MONOCYTES 7.4 % (2-11); NEUTROPHILS 66.8 % (40-80); PLATELET COUNT 151 10x3/uL (130-400); RBC 5.26 10x6/uL (4.20-6.10); RDW 13.1 % (11.5-14.5); WBC 9.8 10x3/uL (4.8-10.8)
[2019-01-10 11:23] LABS: ANION GAP 11.8 mmol/L (8-16); CALCIUM 8.6 mg/dL (8.5-10.1); CARBON DIOXIDE 27.6 mmol/L (21.0-32.0); CREATININE - SERUM 1.1 mg/dL (0.6-1.3); POTASSIUM - SERUM 4.4 mmol/L (3.5-5.1)
[~2019-01-11] VITALS: Ht 185.4 cm; Wt 83.5 kg
[~2019-01-11 05:15] MED LIST changes: -HYDROCODON-ACE1 EA10 PO
[2019-01-11 06:07] VITALS: BP 132/74; Ht 185.4 cm; Wt 83.5 kg
[2019-01-11] MEDS ORDERED: HYDROCODON-ACE1 EA10 PO (09:02)
[2019-01-11] MEDS ORDERED: CYCLOBENZAPRINE10 MG PO (09:03)
--- NOTE | 2019-01-11 10:22 | NUR ---
1010-REC'D FROM RR. DROWSY, EASILY AROUSED. VSS. DRESSING TO ABDOMEN CDI. ICE PACK TO ABDOMEN. REPORTS PAIN /10. TOLERATING WATER. AT BEDSIDE WITH CL IN EASY REACH
--- NOTE | 2019-01-11 12:30 | NUR ---
1100-AMBULATED TO RESTROOM,SLOW STEADY GAIT. UNABLE TO URINATE.
--- NOTE | 2019-01-11 12:31 | NUR ---
1220-AMBULATED TO RESTROOM, UNABLE TO URINATE.
--- NOTE | 2019-01-11 14:18 | NUR ---
1410-DISCHARGE CRITERIA MET. REMOVED IV FROM LEFT HAND WITH CATH INTACT, DISPOSED INTO SHARPS CONTAINER. COVERED SITE WITH BANDAID. REVIEWED DISCHARGE INSTRUCTIONS WITH PT.VERBALIZED UNDERSTANDING WITHOUT QUESTIONS OR CONCERNS. ESCORTED OUT VIA W/C WITH FAMILY MEMBER DRIVING HOME
--- NOTE | 2019-01-22 10:07 | OP ---
PATIENT NAME: GENE LARSON MEDICAL RECORD: [id number] :61 LOCATION:D.OPS ADMISSION DATE: SURGEON: GUILLERMO CASTELLANOS MD DATE OF OPERATION: 01/11/2019 PREOPERATIVE DIAGNOSES: 1. Ventral incisional hernias. 2. Coronary artery disease. 3. Peripheral vascular disease. 4. Hypertension. 5. Tobacco dependence syndrome. 6. Hypercholesterolemia. POSTOPERATIVE DIAGNOSES: 1. Ventral incisional hernias. 2. Coronary artery disease. 3. Peripheral vascular disease. 4. Hypertension. 5. Tobacco dependence syndrome. 6. Hypercholesterolemia. PROCEDURE: Ventral hernia repair with 15 x [address] mesh. SURGEON: Guillermo Castellanos MD REPORT OF PROCEDURE: The patient's abdomen was prepped and draped in sterile fashion. A midline incision was performed and upon going through the subcutaneous tissues, we encountered multiple small hernia defects, largest of these was down around the umbilicus. These hernia defects were mainly in the midline. As we continued our dissection through the tissue, there were some fascial bridges present and there was a lot of laxity to the tissue. I went ahead and just opened up the midline all the way into the abdomen and took down the falciform ligament and tied it off with the 3-0 silk. The fascia was cleared off on its top and bottom surface and any adhesions that were present were taken down carefully with blunt dissection or electrocautery. Once we had the fascia completely exposed, then I resected the edges of the tissue back on the fascia until it was a nice straight surface with good fascial tissue in all directions. The total length of the defect was about 20 cm. A 25 x [address] mesh was then inserted in an underlay fashion and this was sutured down on all sides using multiple interrupted 0 Prolenes. We then closed the fascia overlying the mesh using running #1 loop PDS times 2. We irrigated out the wound and assured there was no sign of any bleeding. The subcutaneous tissues were then reapproximated with interrupted 3-0 Vicryl and the skin was closed with pallavi. A 10 mL of 0.25% Marcaine plain were infused into the surrounding tissues and the wound was dressed appropriately. COMPLICATIONS: None. CONDITION: Stable. ANESTHESIA: General endotracheal and local. BLOOD LOSS: 30 mL. TRANSINT:[id number] Voice Confirmation ID: [id number] DOCUMENT ID: [id number] OPERATIVE REPORT [id number] GENE LARSON CHRISTIAN MD at 1007 CC: JONAH LEWIS [id number] DICTATION DATE: 01/11/19908 DRUPAL WEB DEVELOPER: 01/11/[address] [facility] 01/11/19 [place] [id number] [place] [id number]
== END 2019-01-11 14:10 | disposition home or self-care (01) ==
LOC: D.OPS 05:15 → D.PAN 07:15 → D.OPS 08:00 → D.PAN 08:00 → D.OPS 14:10
PROVIDERS: ATTEND Surgery
DX: K43.2 Incisional hernia without obstruction or gangrene (principal); I25.10 Atherosclerotic heart disease of native coronary artery without angina pectoris; I73.9 Peripheral vascular disease, unspecified; I10 Essential (primary) hypertension; F17.200 Nicotine dependence, unspecified, uncomplicated; E78.00 Pure hypercholesterolemia, unspecified; Z01.812 Encounter for preprocedural laboratory examination

== ENCOUNTER → 2019-02-04 08:05 | Outpatient (CLI) | payer BC ==
[2019-01-11 06:07] VITALS: BMI 24.3
[~2019-02-04 08:05] MED LIST changes: +HYDROCODON-ACE1 EA10 PO
== END | disposition home or self-care (01) ==
LOC: D.US 08:05
PROVIDERS: ATTEND Internal Medicine Interventional Cardiology
DX: R09.89 Other specified symptoms and signs involving the circulatory and respiratory systems (principal)

== ENCOUNTER → 2019-02-11 12:16 | Outpatient (CLI) | payer BC ==
[2019-01-11 06:07] VITALS: BMI 24.3
== END | disposition home or self-care (01) ==
LOC: D.US 12:16
PROVIDERS: ATTEND Thoracic Surgery (Cardiothoracic Vascular Surgery)
DX: I70.203 Unspecified atherosclerosis of native arteries of extremities, bilateral legs (principal)

== ENCOUNTER 2019-08-02 12:26 | Emergency (ER) | payer BC ==
[~2019-08-02] VITALS: Ht 185.4 cm; Wt 84.1 kg
[2019-08-02 12:33] VITALS: Ht 185.4 cm; Wt 84.1 kg
[2019-08-02 14:06] VITALS: BP 142/78
== END 2019-08-02 14:07 | disposition home or self-care (01) ==
LOC: D.ER 12:26
DX: S51.812A Laceration without foreign body of left forearm, initial encounter (principal); X58.XXXA Exposure to other specified factors, initial encounter; I10 Essential (primary) hypertension; M54.9 Dorsalgia, unspecified; K21.9 Gastro-esophageal reflux disease without esophagitis

== ENCOUNTER → 2019-08-06 09:57 | Outpatient (CLI) | payer BC ==
[2019-08-02 12:33] VITALS: BMI 24.4
== END | disposition home or self-care (01) ==
LOC: D.US 09:57
PROVIDERS: ATTEND Thoracic Surgery (Cardiothoracic Vascular Surgery)
DX: I73.9 Peripheral vascular disease, unspecified (principal)

== ENCOUNTER → 2020-08-10 07:25 | Outpatient (CLI) | payer BC | END | disposition home or self-care (01) | LOC: D.US 07:25 | DX: I73.9 Peripheral vascular disease, unspecified (principal) ==